=== PATIENT | male | born 1990 | race Two or more races ===

== ENCOUNTER 2019-08-22 12:14 | Emergency (ER) | payer OTHER ==
[~2019-08-22] VITALS: Ht 167.6 cm; Wt 88.1 kg
[2019-08-22 12:14] VITALS: BP 150/90
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
== END 2019-08-22 12:45 | disposition home or self-care (01) ==
LOC: ER 12:14
DX: Z77.21 Contact with and (suspected) exposure to potentially hazardous body fluids (principal); Z88.0 Allergy status to penicillin
CPT/HCPCS: 86703; 86705; 86709; 86803; 87340; 99284

== ENCOUNTER 2019-09-27 12:14 | Emergency (ER) | payer OTHER ==
[~2019-09-27] VITALS: Ht 167.6 cm; Wt 91.5 kg
[2019-09-27 12:15] VITALS: BP 156/90
[2019-09-27] MEDS ORDERED: CLIN300C8 PO (12:42)
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
[2019-09-27] MEDS ORDERED: CLINDAMYCIN HCL 150 MG CAPSULE ONE (12:51)
[2019-09-27] MEDS ORDERED: BACITRACIN ZINC TOPICAL OINT PACKET. TP ONE ×2 (12:51→13:00)
[2019-09-27] MEDS ORDERED: CLINDAMYCIN HCL 150 MG CAPSULE PO ONE (13:00)
== END 2019-09-27 12:55 | disposition home or self-care (01) ==
LOC: ER 12:14
DX: S40.212A Abrasion of left shoulder, initial encounter (principal); Z88.0 Allergy status to penicillin; Y04.1XXA Assault by human bite, initial encounter; Y93.89 Activity, other specified; Y92.89 Other specified places as the place of occurrence of the external cause; Y99.8 Other external cause status
CPT/HCPCS: 86703; 86705; 86709; 86803; 87340; 99283